=== PATIENT | female | born 1980 | race Caucasian/White ===

== ENCOUNTER 2022-12-11 17:46 | Emergency (ER) | payer SELFPAY ==
[2022-12-11 18:01] VITALS: BP 137/77; PULSE 100; RESP 18; TEMP 36.8; O2SAT 99; BMI 27.3
--- NOTE | 2022-12-11 18:29 | W.ED.BACK ---
HPI - Back Pain/Injury General: Chief Complaint: Back Pain/Injury Stated Complaint: Lower Back Pain\Muscle Spasms\Rash Time Seen by Provider: 12/11/22 18:29 History of Present Illness: 42-year-old female comes in today for complaints of low back pain. Patient has a history of kidney stones. Patient reports feeling of malaise. Patient reports her pain is in her lower lumbar sacral area. Patient has had a tubal ligation for sterilization after 3 C-sections. Patient denies any other surgeries. Patient takes no routine medications. Patient appears nontoxic. Patient appears in moderate pain. Associated symptoms: Reports nausea; Deny fever(s) or vomiting Review of Systems General: Reports: 10 or more systems reviewed and unremarkable except in HPI and below Const: Reports: malaise; Denies: fever(s) Card: Denies: chest pain Resp: Denies: dyspnea GI: Reports: nausea; Denies: vomiting, diarrhea or constipation : Denies: difficulty voiding Musc: Reports: back pain Skin/Breast: Reports: rash Physical Exam Const: COMMON NORMALS: alert HENMT: COMMON NORMALS: normocephalic HEAD & SCALP: normocephalic Neck/C-Spine: COMMON NORMALS: full ROM Chest: COMMONS NORMALS: normal inspection of the chest Resp: COMMON NORMALS: normal respiratory effort and clear to auscultation bilaterally AUSCULTATION: clear to auscultation bilaterally Cardio: COMMON NORMALS: regular rate and regular rhythm RATE: regular rate RHYTHM: regular rhythm GI: COMMON NORMALS: Soft to palpation and non-tender PALPATION: Yes Soft to palpation : COMMON NORMALS: Yes no CVA tenderness BLADDER/KIDNEY EXAM: Yes no CVA tenderness Back/Pelvis: COMMON NORMALS: no CVA tenderness THORACIC SPINE/UPPER BACK: No thoracic spinal tenderness and No paraspinal muscle tenderness LUMBAR SPINE/LOWER BACK: Yes lumbar spinal tenderness Lumbar spinal tenderness location: L5 and Yes paraspinal muscle tenderness Extremity: COMMON NORMALS: normal to inspection Neuro: SENSORIUM/ORIENTATION: Yes alert Skin: COMMON NORMALS: turgor normal GENERAL SKIN EXAM: turgor normal RASHES: other (Folliculitis) Course Vital Signs: Vital signs: Vital Signs Temperature 98.3 F 12/11/22 18:01 Pulse Rate 72 12/11/22 20:13 Respiratory Rate 18 12/11/22 18:01 Blood Pressure 116/71 12/11/22 20:13 Pulse Oximetry 100 12/11/22 20:13 Oxygen Delivery Me thod Room Air 12/11/22 19:34 MDM - Back Pain/Injury Medical Decision Making Patient came in today for complaints of pelvic discomfort and low back pain. On exam patient has tenderness of the lumbar sacral area of L5-S1. Patient also has some suprapubic tenderness on palpation. Vital signs are normal. Lungs clear to auscultation. Skin is warm and dry. Differential diagnosis includes but not limited to appendicitis, renal calculi, pyelonephritis, cystitis, ovarian cyst, intervertebral disc disease, facet arthritis. Laboratory values were unremarkable. Urinalysis was clear. CT of the abdomen pelvis noted a collapsing right ovarian cyst with a small amount of fluid in the pelvis, no hydronephrosis of obstructing calculus or signs of appendicitis was noted. No signs of acute surgical abdomen was noted. Patient was given an injection of Toradol in the ER with improvement of pain. Patient be continued on naproxen for her pain and discomfort. Patient also had some folliculitis that was noted on exam most likely Pseudomonas and origins due to patient's history. Patient will be placed on Cipro 500 twice a day for next 10 days. Patient reported understanding of care plan and need for follow-up or return to the ER. Labs 12/11/22 18:45 12/11/22 18:45 Radiology Impressions Abdomen/Pelvis CT 12/11/22 18:35 IMPRESSION: 1. There is a crenulated/collapsing right ovarian cyst measuring 2.1 x 1.7 cm in size with small volume of fluid in the right adnexa and pelvis. 2. No hydronephrosis or obstructing calculus. Unremarkable appendix. COMMENTS: Consistent with the [employer]'s Incidental Findings Committee white paper (J Am Bony Radiol 2018): Any incidental renal lesion less than 1 cm or classified as too small to characterize, or any incidental cystic renal lesion characterized as simple-appearing, is likely benign. No follow-up imaging is recommended for these lesions per consensus recommendations based on imaging criteria. Laboratory Results WBC 11.4 10^3/uL (4.0-10.0) H 12/11/22 18:45 RBC 5.00 10^6/uL (4.1-5.3) 12/11/22 18:45 Hgb 15.2 g/dL (11.5-15.3) 12/11/22 18:45 Hct 45.2 % (37.0-47.0) 12/11/22 18:45 MCV 90.4 fl (81-99) 12/11/22 18:45 MCH 30.4 pg (28.0-34.0) 12/11/22 18:45 MCHC 33.6 g/dL (30.0-36.0) 12/11/22 18:45 RDW 12.8 % (12.1-15.1) 12/11/22 18:45 Plt Count 351 10^3/cmm (130-400) 12/11/22 18:45 MPV 9.8 fL (7.4-10.4) 12/11/22 18:45 Neut % (Auto) 72.8 % 12/11/22 18:45 Lymph % (Auto) 18.2 % 12/11/22 18:45 Hall % (Auto) 7.0 % 12/11/22 18:45 Eos % (Auto) 1.1 % 12/11/22 18:45 Baso % (Auto) 0.6 % 12/11/22 18:45 Neut # (Auto) 8.30 10^3/uL (1.8-7.7) H 12/11/22 18:45 Lymph # (Auto) 2.1 10^3/uL (0.8-4.8) 12/11/22 18:45 Hall # (Auto) 0.8 10^3/uL (0.2-0.9) 12/11/22 18:45 Eos # (Auto) 0.1 10^3/uL (0.0-0.8) 12/11/22 18:45 Baso # (Auto) 0.1 10^3/uL (0.0-0.1) 12/11/22 18:45 Nucleated RBC % (auto) 0 % 12/11/22 18:45 Nucleated RBCs # 0.0 /100WBC 12/11/22 18:45 Sodium 135 mmol/L (136-145) L 12/11/22 18:45 Potassium 3.7 mmol/L (3.5-5.1) 12/11/22 18:45 Chloride 100 mmol/L (98-107) 12/11/22 18:45 Carbon Dioxide 27 mmol/L (22-29) 12/11/22 18:45 Anion Gap 11.7 (5-19) 12/11/22 18:45 BUN 9 mg/dL (6-20) 12/11/22 18:45 Creatinine 0.8 mg/dL (0.5-0.9) 12/11/22 18:45 GFR Calculation 79.4 mL/min (90-130) L 12/11/22 18:45 Glucose 79 mg/dL (65-115) 12/11/22 18:45 Calculated Osmolality 278 mOsm/kg (285-295) L 12/11/22 18:45 Calcium 9.2 mg/dL (8.5-10.5) 12/11/22 18:45 Total Bilirubin 0.2 mg/dL (0.15-1.2) 12/11/22 18:45 AST 15 U/L (0-32) 12/11/22 18:45 ALT 7 U/L (0-33) 12/11/22 18:45 Alkaline Phosphatase 86 U/L (35-105) 12/11/22 18:45 Total Protein 7.8 g/dL (6.6-8.7) 12/11/22 18:45 Albumin 4.8 g/dL (3.5-5.2) 12/11/22 18:45 Globulin 3.0 g/dL (1.3-4.6) 12/11/22 18:45 Lipase 43 U/L (13-60) 12/11/22 18:45 HCG, Qual Negative (Negative) 12/11/22 18:45 Urine Color Yellow (Yellow) 12/11/22 18:45 Urine Appearance Clear (CLEAR) 12/11/22 18:45 Urine pH 5 (5-7) 12/11/22 18:45 Ur Specific [place] 1.010 (1.005-1.030) 12/11/22 18:45 Urine Protein Neg (Negative) 12/11/22 18:45 Urine Glucose (UA) Norm (Normal) 12/11/22 18:45 Urine Ketones Negative (Negative) 12/11/22 18:45 Urine Blood Neg (Negative) 12/11/22 18:45 Urine Nitrate Negative (Negative) 12/11/22 18:45 Urine Bilirubin Neg (Negative) 12/11/22 18:45 Urine Urobilinogen Norm mg/dL (Negative) 12/11/22 18:45 Ur Leukocyte Esterase Negative (Negative) 12/11/22 18:45 Discharge Plan Discharge Patient Disposition: Home Clinical Impression: Folliculitis due to Pseudomonas aeruginosa Ovarian cyst Qualifiers: Laterality: right Qualified Code(s): N83.201 - Unspecified ovarian cyst, right side Intervertebral disc degeneration Qualifiers: Spinal region: lumbosacral Qualified Code(s): M51.37 - Other intervertebral disc degeneration, lumbosacral region Condition: Stable Prescriptions: New naproxen 500 mg tablet 500 mg PO BID Qty: 20 0RF ciprofloxacin HCl 500 mg tablet 500 mg PO Q12H Qty: 20 0RF Discharge Orders: Discharge ED (Routine); Ordered 12/11/22 Ordered By: Gutierrez Easley Discharge Diet: Usual diet Discharge Activity: Increase activity as tolerated Patient Instructions: Ovarian Cyst (ED), Folliculitis (ED), Spondylolisthesis (ED) Activity Restrictions/Additional Instructions: Home and rest. Use acetaminophen and naproxen to control pain. Use ice or heat for further pain relief. Follow-up with primary care for further evaluation and treatment. Return to ER for new concerns. Stand Alone Forms: Work/School Release Coding Level of Care Code ED [employer] for [employer]
[2022-12-11 18:34] VITALS: BP 131/87; PULSE 86; O2SAT 100
--- NOTE | 2022-12-11 18:35 | CTR_ITS ---
PROCEDURE INFORMATION: Exam: CT Abdomen And Pelvis Without And With Contrast Exam date and time: 12/11/2022 7:18 PM Age: 42 years old Clinical indication: Abdominal pain; Flank; Other: Bilateral posterior; Prior surgery; Surgery date: 6+ months; Surgery type: 3 csection, ablation, tubes tied and burned; Additional info: Severe low back pain, HX of renal calculi TECHNIQUE: Imaging protocol: Computed tomography of the abdomen and pelvis without and with contrast. Radiation optimization: All CT scans at this facility use at least one of these dose optimization techniques: automated exposure control; mA and/or kV adjustment per patient size (includes targeted exams where dose is matched to clinical indication); or iterative reconstruction. Contrast material: OMNIPAQUE 350; Contrast volume: 100 ml; Contrast route: INTRAVENOUS (IV); REPORTING DATA: Count of CT and Cardiac NM exams in prior 12 months: This patient has received 0 known CTs and 0 known cardiac nuclear medicine studies in the 12 months prior to the current study. COMPARISON: No relevant prior studies available. RADIATION DOSE METRICS: Total DLP (mGy-cm): 1002.6 FINDINGS: Liver: Unremarkable.No mass. Gallbladder and bile ducts: The gallbladder is contracted/decompressed. There is no common bile duct dilation. There is no wall thickening or pericholecystic fluid to suggest cholecystitis. Pancreas: The pancreas is normal. Spleen: The spleen is normal. Adrenal glands: The adrenal glands are normal. Kidneys and ureters: There is no evidence of hydronephrosis. There is no evidence of renal calcifications. No calculi are identified in the ureters or bladder. There is a 3 mm calculus just medial to the distal right ureter at the ureteral vesicle junction that is a probable phlebolith. There are multiple renal hypodensities that cannot be further characterized on the current examination. Stomach and bowel: There is no evidence of intestinal perforation or obstruction. There is moderately excessive colonic stool content. Appendix: A normal appendix is identified. Intraperitoneal space: Unremarkable. No free air. No significant fluid collection. Vasculature: The aorta is normal. Lymph nodes: Unremarkable.No enlarged lymph nodes. Urinary bladder: See Kidneys and ureters finding. Reproductive: There is a crenulated/collapsing right ovarian cyst measuring 2.1 x 1.7 cm in size with small volume of fluid in the right adnexa and pelvis. There is also a 2.2 cm cyst right ovary and multiple cysts left ovary measuring up to 1.8 cm in size. Myometrium of the uterus is heterogeneous and may reflect small fibroids. Bones/joints: There is a disc bulge at L5-S1 with moderate narrowing of the central canal and mild bilateral foraminal narrowing. No acute fracture. Soft tissues: Unremarkable. CT/CT abdomen pelvis wo/w [id number] IMPRESSION: 1. There is a crenulated/collapsing right ovarian cyst measuring 2.1 x 1.7 cm in size with small volume of fluid in the right adnexa and pelvis. 2. No hydronephrosis or obstructing calculus. Unremarkable appendix. COMMENTS: Consistent with the [employer]'s Incidental Findings Committee white paper (J Am Bony Radiol 2018): Any incidental renal lesion less than 1 cm or classified as too small to characterize, or any incidental cystic renal lesion characterized as simple-appearing, is likely benign. No follow-up imaging is recommended for these lesions per consensus recommendations based on imaging criteria.
[2022-12-11] MEDS: ketorolac 30 mg/mL INJ 15 MG IVP (18:42)
[2022-12-11 19:12] LABS: Basophils # 0.1 10^3/uL (0.0-0.1); Basophils % 0.6 %; Eosinophils # 0.1 10^3/uL (0.0-0.8); Eosinophils % 1.1 %; Hematocrit 45.2 % (37.0-47.0); Hemoglobin 15.2 g/dL (11.5-15.3); Lymphocytes # 2.1 10^3/uL (0.8-4.8); Lymphocytes % 18.2 %; Mean Corpuscular HGB Conc 33.6 g/dL (30.0-36.0); Mean Corpuscular Hemoglobin 30.4 pg (28.0-34.0); Mean Corpuscular Volume 90.4 fl (81-99); Mean Platelet Volume 9.8 fL (7.4-10.4); Monocytes # 0.8 10^3/uL (0.2-0.9); Neutrophils % 72.8 %; Nucleated Red Blood Cells % 0 %; Platelet Count 351 10^3/cmm (130-400); Red Cell Distribution Width 12.8 % (12.1-15.1); White Blood Count 11.4 10^3/uL (4.0-10.0)
[2022-12-11 19:13] LABS: HCG, Serum Qual Negative (Negative)
[2022-12-11 19:19] LABS: Alanine Aminotransferase 7 U/L (0-33); Albumin Level 4.8 g/dL (3.5-5.2); Alkaline Phosphatase 86 U/L (35-105); Anion Gap 11.7 (5-19); Aspartate Amino Transferase 15 U/L (0-32); Blood Urea Nitrogen 9 mg/dL (6-20); Calcium 9.2 mg/dL (8.5-10.5); Carbon Dioxide 27 mmol/L (22-29); Chloride 100 mmol/L (98-107); Glomerular Filtration Rate 79.4 mL/min (90-130); Glucose 79 mg/dL (65-115); Lipase 43 U/L (13-60); Osmolality Calculated 278 mOsm/kg (285-295); Potassium 3.7 mmol/L (3.5-5.1); Sodium 135 mmol/L (136-145); Total Bilirubin 0.2 mg/dL (0.15-1.2); Total Protein 7.8 g/dL (6.6-8.7)
[2022-12-11] MEDS: iohexol 350 mg/mL 500 mL Btl (per mL) IV (19:24)
[2022-12-11 19:33] LABS: Add Urine Microscopic? NO; Charge for UA Resulting for Rev
[2022-12-11 19:34] VITALS: BP 146/81; PULSE 73; O2SAT 100
[2022-12-11 19:36] LABS: Bilirubin Urine Neg (Negative); Blood Urine Neg (Negative); Glucose Urine UA Norm (Normal); Ketones Urine Negative (Negative); Leukocyte Esterase Urine Negative (Negative); Nitrate Urine Negative (Negative); Protein Urine Neg (Negative); Urine Appearance Clear (CLEAR); Urine Color Yellow (Yellow); Urobilinogen Urine Norm (Negative); pH Urine 5 (5-7)
[2022-12-11] MEDS: ciprofloxacin 500 mg Tablet PO (20:08)
[2022-12-11 20:13] VITALS: BP 116/71; PULSE 72; O2SAT 100
== END 2022-12-11 20:15 | disposition home or self-care (01) ==
PROVIDERS: Emergency Provider Nurse Practitioner Family
DX: N83.201 Unspecified ovarian cyst, right side (principal); M51.37 Other intervertebral disc degeneration, lumbosacral region
CPT/HCPCS: 74178; 80053; 81003; 83690; 84703; 85025; 96374; 99285; J1885; Q9967